=== PATIENT | male | born 1990 | race Caucasian/White ===

== ENCOUNTER 2016-06-11 10:13 | Emergency (ER) | payer MEDICAID ==
[~2016-06-11] VITALS: Ht 170.2 cm; Wt 83.6 kg
[2016-06-11] MEDS ORDERED: SODIUM CHLORIDE 0.9% 1,000 ML IV ONE (11:39)
[2016-06-11] MEDS ORDERED: ONDANSETRON 2MG/ML, 2ML ONE (11:59)
[2016-06-11] MEDS ORDERED: ONDANSETRON 2MG/ML, 2ML IVPush ONE (12:00)
[2016-06-11] MEDS ORDERED: SODIUM CHLORIDE 0.9% 1,000ML IVBOLUS ONE (12:00)
[2016-06-11] MEDS ORDERED: ACETAMINOPHEN 500 MG TABLET ONE (12:00)
[2016-06-11] MEDS ORDERED: ACETAMINOPHEN 325 MG TABLET PO ONE (12:00)
[2016-06-11 12:28] LABS: BLOOD UREA NITROGEN 10 mg/dL (7-18)
[2016-06-11] MEDS ORDERED: AZITHROMYCIN 500 MG in SODIUM CHLORIDE 0.9% 250 ML IV ONE (12:30)
[2016-06-11] MEDS ORDERED: CEFTRIAXONE PMX 1GM/50ML 50 ML IVPB ONE (12:30)
[2016-06-11] MEDS ORDERED: CEFTRIAXONE PMX 1GM/50ML 50 ML ONE (13:04)
[2016-06-11] MEDS ORDERED: OMNIPAQUE 350 MG/ML, 100ML BOTTLE ONE (13:45)
[2016-06-11 16:04] VITALS: BP 114/74
== END 2016-06-11 16:09 | disposition home or self-care (01) ==
LOC: ED 11:21
DX: R11.2 Nausea with vomiting, unspecified (principal); J15.9 Unspecified bacterial pneumonia; R50.9 Fever, unspecified; F17.210 Nicotine dependence, cigarettes, uncomplicated
CPT/HCPCS: 36415; 71010; 71275; 80048; 82040; 83605; 85025; 87040; 87081; 87880; 96361; 96365; 96366; 96368; 96375; 99285; J0456; J0696; J2405; J7030; J7050; Q9967